=== PATIENT | male | born 1980 | race Caucasian/White ===

== ENCOUNTER 2016-11-10 08:36 | Emergency (ER) | payer BC ==
[~2016-11-10] VITALS: Ht 170.2 cm; Wt 97.5 kg
[~2016-11-10 08:36] MED LIST: NAPROSYN500 MG PO; TRAMADOL 50 MG50 MG PO
[2016-11-10 08:40] VITALS: BP 153/92
[2016-11-10] MEDS ORDERED: NORCO 5-325 TA1 EACH PO (09:15)
[2016-11-10] MEDS ORDERED: MEDROLDOSEPACK PO (09:15)
[2016-11-10] MEDS ORDERED: SENOKOT-S1 TA1 PO (09:15)
== END 2016-11-10 09:28 | disposition home or self-care (01) ==
LOC: ER 08:36
DX: M54.41 Lumbago with sciatica, right side (principal); Z90.89 Acquired absence of other organs